=== PATIENT | female | born 1990 | race Caucasian/White ===

== ENCOUNTER 2017-03-30 18:55 | Emergency (ER) | payer OTHER ==
[2017-03-30 19:04] VITALS: BP 121/67; PULSE 86; BMI 21.7
[2017-03-30] MEDS ORDERED: IBUPROFEN 600 MG TABLET (FP) PO ONE ×2 (20:04→20:29)
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
== END 2017-03-31 02:32 | disposition home or self-care (01) ==
LOC: JER 18:55
DX: S70.12XA Contusion of left thigh, initial encounter (principal); S00.531A Contusion of lip, initial encounter; V94.0XXA Hitting object or bottom of body of water due to fall from watercraft, initial encounter; S03.2XXA Dislocation of tooth, initial encounter; Y93.19 Activity, other involving water and watercraft; Y92.89 Other specified places as the place of occurrence of the external cause; Y99.8 Other external cause status
CPT/HCPCS: 70486-TC; 73060-TC-LT; 73523-TC; 84703; 99282-25